=== PATIENT | female | born 1950 | race Caucasian/White ===

== ENCOUNTER 2016-10-03 06:54 | Day surgery (SDC) | payer OTHER ==
[~2016-10-03 06:54] MED LIST: ACULAR5 ML OP; AMLACTIN57 GM; CELEBREX200 M1 PO; ESTROPIPATE PO; IMITREX100 M2 PO; NORPACE PO; POLYETHYLENE G255 G1 PO; SYNTHROID88 MC1 PO; TOPROL XL25 M1 PO; VALTREX500 M1 PO; WELLBUTRIN SR150 M2 PO; ZANAFLEX4 M2 PO; [UNRECOGNIZED DRUG - OTHER] PO
[2016-10-03 07:51] LABS: HCT-HEMATOCRIT 38.1 % (34.0-49.0); HGB-HEMOGLOBIN 12.8 gm/dl (12.0-15.5); RED CELL DISTRIBUTION WIDTH 13.4 % (12.4-16.4)
== END 2016-10-03 11:50 ==
LOC: WSU 06:54 → SHSC 06:57 → ORW 08:51 → PACU 09:47 → SHSC 10:25
PROVIDERS: Obstetrics & Gynecology
PROC: 0DNW4ZZ Release Peritoneum, Percutaneous Endoscopic Approach (ICD-10-PCS; principal; 2016-10-03)
PROC: 8E0W4CZ Robotic Assisted Procedure of Trunk Region, Percutaneous Endoscopic Approach (ICD-10-PCS; 2016-10-03)
DX: N73.6 Female pelvic peritoneal adhesions (postinfective) (principal); G89.29 Other chronic pain; I10 Essential (primary) hypertension; M19.90 Unspecified osteoarthritis, unspecified site; M79.7 Fibromyalgia; R51 Headache; E03.9 Hypothyroidism, unspecified; F32.9 Major depressive disorder, single episode, unspecified; Z79.899 Other long term (current) drug therapy; Z88.8 Allergy status to other drugs, medicaments and biological substances; Z90.49 Acquired absence of other specified parts of digestive tract; Z90.710 Acquired absence of both cervix and uterus; Z98.1 Arthrodesis status; Z90.721 Acquired absence of ovaries, unilateral; Z98.890 Other specified postprocedural states
CPT/HCPCS: J7030